=== PATIENT | female | born 1995 ===

== ENCOUNTER → 2017-02-28 | Outpatient (CLI) | payer OTHER ==
--- NOTE | 2017-03-02 08:23 | DI ---
OBSTETRICAL ULTRASOUND, 02/28/2017 10:47 AM: Clinical History: Antepartum screening. Previous Exam: None at this facility for this . LMP DATE PROVIDED BY PROVIDER: 09/28/2016. There is a single live IUP currently in vertex presentation. Amnionic fluid content is normal. activity is observed as follows: cardiac, extremity, and respiratory. The placenta is posterior corpu s and Grade 1. heart rate is 152 beats/minute and regular. There is a 3 vessel cord. The RVOT, LVOT and 4 chamber heart view are normal. The aortic arch and descending aorta are normal. Views of t he spine, face, and kidneys are unremarkable. BPD, HC, AC, and FL measurements are 50 mm, 197 m m, 183 mm, and 37 mm, respectively. These measurements correspond to EGA values of 21 weeks 1 day, 22 weeks 0 days, 23 weeks 1 day and 21 weeks 6 days, respectively. Composite EGA is 22 weeks 1 day The US EDC is 07/03/2017. EDC by adjusted LMP is 07/05/2017. Readin. Single live fetus with vertex presentation and normal amniotic fluid content. Placenta is posteri or corpus and grade 1. 2. The composite EGA is 22 weeks 1 day with an ultrasound EDC of 07/03/2017. The provided LMP of 2016 gives an EDC of 07/05/2017. 3. The antepartum screening study is complete and normal.
== END ==
LOC: US 10:37
PROVIDERS: ATTEND Family Medicine
DX: Z36 Encounter for antenatal screening of mother (principal)
CPT/HCPCS: 76805